=== PATIENT | female | born 1935 | race Caucasian/White ===

== ENCOUNTER 2016-09-02 11:00 | Day surgery (SDC) | payer MEDICARE, OTHER ==
[~2016-09-02] VITALS: Ht 167.6 cm; Wt 62.1 kg
--- NOTE | 2016-09-02 08:56 | PCM.HPANE ---
Patient Data Surgeon Admitting Provider: Attending Provider:Nava St MD Primary Care Physician:Elina Brown Other Provider: Reason for Visit Mixed Incontinence, Frequency Of Urination Ht/WT & BMI Height (Feet): 5 Height (Inches): 6 Weight (Kilograms): 60.78 Body Mass Index 21.00 Allergies Coded Allergies: Sulfa (Sulfonamide Antibiotics) (Verified Allergy, Unknown, rash, 08/31/16) ciprofloxacin (Verified Allergy, Unknown, rash, 08/31/16) clopidogrel (Verified Allergy, Unknown, nausea, 08/31/16) codeine (Verified Allergy, Unknown, 08/31/16) heparin (Verified Allergy, Unknown, 08/31/16) hydrochlorothiazide (Verified Allergy, Unknown, rash, 08/31/16) metoclopramide (Verified Allergy, Unknown, anxiety, 08/31/16) oxycodone (Verified Allergy, Unknown, 08/31/16) prednisone (Verified Allergy, Unknown, 08/31/16) Past Anesthesia History Anesthesia History: Denies:: Abnormal Airway, Anesthesia Reactions, Difficult Intubation, Fam Anesthesia Reaction Diabetes History Hx Diabetes?: No MRSA MRSA: No Medications Blood Thinner: Xarelto Hypertension Medication: No Home Meds Incl Beta Edy: No Reported Medications Calcium Carbonate (Calcium)600 Mg [id number] Mg PO BID 09/02/16 Mirtazapine (Remeron)15 Mg Tablet0.25 Tablet PO HS Ref 0 09/02/16 Rivaroxaban (Xarelto)15 Mg Rsqxab08 Mg PO DAILY 08/31/16 [vitamin d3] No Conflict CheckUnknown Dose DAILY 08/31/16 Ascorbic Acid (Vitamin C)1,000 Mg Tab.chew1,000 Mg PO DAILY Ref 0 08/31/16 Multivitamin (Multi Vitamin Daily)1 Each Tablet1 Each PO DAILY 30 Days Ref 0 08/31/16 Nitrofurantoin Macrocrystal (Macrodantin)50 Mg Jjqbiqx028 Mg PO BID Ref 0 08/31/16 Saccharomyces Boulardii (Florastor)250 Mg Bftfimd957 Mg PO DAILY 08/31/16 Estradiol (Estrace)42.5 Gm Cream.appl1 G VG 3xweekly #1 TUBE Ref 0 08/31/16 Diltiazem ER 120 Mg Capsule.er120 Mg PO DAILY Ref 0 3/13/17 D-Mannose 1 Gm Powder2 Tab MC DAILY 08/31/16 Discontinued Reported Medications Oxybutynin Chloride ER 10 Mg Tab.er.2410 Mg PO DAILY Ref 0 08/31/16 History HEENT History: Positive for:: Cataracts (bilateral) Hearing Problem Denies:: Abnormal Airway Difficult Intubation Dysphagia Glaucoma Sinus Problem TMJ Hx of Heart Problems?: Yes Cardiovascular History: Positive for:: Atrial Fibrillation Irregular Heartbeat (a fib) Denies:: AICD Abdominal Aortic Aneurism Edema Heart Murmur Hypertension Pacemaker Peripheral Vascular Rheumatic Fever Thrombophlebitis Hx of Respiratory Problem?: No Respiratory History: Denies:: Asthma COPD Emphysema Oxygen Administration Pneumonia (as child) Tuberculosis Use of C-PAP Machine Use of Inhalers / NEBS Hx Neurologic Problems?: Yes Neurological History: Positive for:: Dizziness (hx of vertigo) Headaches (when ill) TIA (tia- 8 years ago, no residual) Denies:: CVA Multiple Sclerosis Parkinson's Disease Seizures Hx of GI Problems?: Yes Gastrointestinal History: Positive for:: Gall Bladder Disease (lillian ) Denies:: Cirrhosis Gastroesphageal Reflux Gastrointestinal Bleeding Heartburn Hepatitis Hiatal Hernia Liver Disease Rectal Bleeding Hx of Problems?: Yes Genitourinary History: Positive for:: Urinary Tract Infection (recurring UTI' s ) Female Hx: Denies:: Currently (hysterectomy) Problems with Breasts? Skin History: Denies:: History Skin Disorders? Pressure Ulcers Hx Musculoskeletal Problems?: Yes Musculoskeletal History: Positive for:: Back Injury (back aches) Osteoarthritis Denies:: Fibromyalgia Joint Replacement Musculoskeletal Trauma (hx of left hip ) Myasthenia Gravis Hx of Psycho/Social Problems?: Yes Psycho Social History: Positive for:: Anxiety Hx Surgeries?: Yes (c section, lillian ) Hx Any Other Health Problems?: Yes Other History: Denies:: Cancer Thyroid Disease History Blood Transfusions: Positive for:: Accept Blood Products? Denies:: Blood Transfusions Hx Diabetes: No Hx Alcohol Use: NoHx Substance Use: NoHave You Smoked inLast 12 mo: No Stop/Bang S-Snoring: Do You Snore Loudly: No T-Tired: feel tired, fatigued: Yes O-Obsered: Observed not breath: No P-Blood Pressure: treated: No B- Body Mass Index > 35 kg/m2: No A- Age over 50: Yes N- Neck Large Circumference: No G- Gender Male: No MICHELL Total Score: 2 MICHELL Risk Assessment: Low Risk, <3 Yes Risk Assessment Category Category 1A: Patient has history of documented sleep apnea, and HAS NOT received any narcotic, sedative or anesthesia administration during this stay. Category 1B: Patient has history of documented sleep apnea, and HAS received any narcotic , sedative or anesthesia administration during this stay Category 2: Patient has SUSPECTED Obstructive Sleep Apnea, and HAS received any narcotic , sedative or anesthesia administration during this stay. Category 3: Patient has SUSPECTED Obstructive Sleep Apnea and HAS NOT received narcotic, sedative or anesthesia administration during this stay. Category 4: Outpatient in Procedural Areas with known sleep apnea or who screen positive for High Risk via the STOP/BANG questionnaire. Exam Exam General Appearance: Alert, Oriented X3, Cooperative, No Acute Distress HEENT/AIRWAY: MP 2 Lungs: Clear to Auscultation, Normal Air Movement Heart: Exam Unremarkable, Regular Rate/Rhythm, No Murmurs/Rubs/Gallops Plan Impression Patient chart reviewed, patient interviewed and anesthestic plan with risks, benefits, and alternatives discussed, and informed consent obtained. ASA Physical Status: ASA2 Mod Systemic Disease Anesthetic Plan: GA Bene/Risks/Altern/Consents: Yes HP Complete Prior to Induction: Yes Radhames Johnson MD Sep 02, 2016 08:55
[~2016-09-02 11:00] MED LIST: ASCO100089 PO; CeFAZolin Inj 2 GM in IV Premix 1 EACH IV ONE; D-MA1POW MC; DILT120C86 PO; ESTR42.52 VG; MULT-1018 PO; NITR50CA4 PO; OXYB10TA PO; RIVA15TA PO; SACC250C PO; vitamin d3 PO
[2016-09-02] MEDS ORDERED: Ketamine 10 mg/mL 20 mL Inj ONE (11:01)
[2016-09-02] MEDS ORDERED: Propofol 10,000 mCg/mL 20 mL Inj ONE (11:01)
[2016-09-02] MEDS ORDERED: Ondansetron 2 mg/mL 2 mL Inj ONE (11:01)
[2016-09-02] MEDS: Lactated Ringer's 1,000 ML IV SCH ×2 (11:15→12:47)
[2016-09-02 11:29] LABS: APPEARANCE,URINE HAZY (CLEAR,HAZY); COLOR,URINE YELLOW (YELLOW); OCCULT BLOOD,URINE TRACE (NEGATIVE); UROBILINOGEN,URINE NORMAL (NORMAL)
[2016-09-02] MEDS ORDERED: CeFAZolin Inj 2 gm / 50mL D5W IV ONE (11:33)
[2016-09-02] MEDS ORDERED: CALC600T12 PO (11:53)
[2016-09-02] MEDS ORDERED: MIRT15TA PO (11:53)
[2016-09-02 11:58] VITALS: BP 137/56; PULSE 65; RESP 17; O2SAT 95
[2016-09-02] MEDS ORDERED: Gentamicin 40 mg/mL 2 mL Inj IRRIGATION ONE (12:47)
[2016-09-02] MEDS ORDERED: Bupivacaine-MPF 0.5% W/EPI 30 mL Inj INJ ONE (12:47)
[2016-09-02] MEDS ORDERED: Vancomycin 1,000 mg Inj IRRIGATION ONE (12:47)
[2016-09-02] MEDS ORDERED: Lactated Ringer's 500 ML IV PRN (13:14)
[2016-09-02] MEDS ORDERED: Lactated Ringer's 1,000 ML IV SCH (13:14)
[2016-09-02] MEDS ORDERED: fentaNYL-PF 50 mCg/mL 2 mL Inj IVPUSH PRN (13:15)
[2016-09-02] MEDS ORDERED: EPHEDrine Sulfate 50 mg/mL Inj IVPUSH PRN (13:15)
[2016-09-02] MEDS ORDERED: Phenylephrine 10,000 mCg/mL Inj IVPUSH PRN (13:15)
[2016-09-02] MEDS ORDERED: Ondansetron 2 mg/mL 2 mL Inj IVPUSH PRN (13:15)
[2016-09-02 14:35] VITALS: BP 118/70; PULSE 68; RESP 14; O2SAT 98
[2016-09-02] MEDS ORDERED: Ondansetron 8 mg ODT Tablet PO PRN (14:40)
--- NOTE | 2016-09-02 15:14 | PCM.ANEP1 ---
Post Anesthesia Phase 1 PACU Phase 1 Assessment Vital Signs Vital Signs Date Time Temp Pulse Resp B/P Pulse Ox O2 Delivery O2 Flow Rate FiO2 09/02/16 11:58 36.3 65 17 137/56 95 Room Air Level of Alertness: Awake, talking MARLOW's with Equal Strength: Yes Pain: No Nausea or Vomiting: No Oxygen Delivery: Nasal Cannula Lungs: Clear to Auscultation, Normal Air Movement Dermatome Level: Full Sensation Radhames Johnson MD Sep 02, 2016 15:14
--- NOTE | 2016-09-02 15:15 | PCM.ANEP2 ---
Post Anesthesia Evaluation ASA/CMS Post Anesthesia VS in Patient's Normal Range?: Yes Resp Stable; Airway Patent?: Yes CV Function & Hydration Stable: Yes Mental Status Recovered?: Yes Pain control Satisfactory?: Yes N/V Control Satisfactory?: Yes Radhames Johnson MD Sep 02, 2016 15:14
[2016-09-02 15:40] VITALS: BP 118/74; PULSE 78; RESP 16; O2SAT 98
--- NOTE | 2016-09-03 10:19 | OP ---
[address] [address] OPERATIVE REPORT PATIENT: IRLANDA HARTLEY : 1935 MR#: [id number] ADMIT: 09/02/2016 JOB ID: [id number] DATE OF SURGERY: 09/02/2016 PROCEDURE: Stage 1 InterStim implant to include 1 transforaminal placement of a sacral neural electrode Quadripolar as well as 2 fluoroscopy imaging and guidance. SURGEON: Nava St M.D. ANESTHESIA: Local with monitored anesthesia care and IV sedation. PREOPERATIVE DIAGNOSIS(ES): Intractable urinary urgency, frequency, urge incontinence, also history of UTIs as well as fecal urgency and fecal incontinence. POSTOPERATIVE DIAGNOSIS(ES): Intractable urinary urgency, frequency, urge incontinence, also history of UTIs as well as fecal urgency and fecal incontinence. INDICATIONS: The patient is an 81-year-old with longstanding history of urinary symptoms progressively worsening with age with the addition at some point of fecal urgency and fecal incontinence daily. Tried and failed multiple behavioral changes, modifications and conservative measures, ultimately electing trial of sacral neuromodulation to try to help her severe symptoms. PROCEDURE IN DETAIL: After appropriate informed consent was obtained, the patient was brought to the operating room. She received IV antibiotics prior to onset of the procedure. She was made comfortable in the prone position. All pressure points carefully padded. Cleaned, prepped and draped in the usual sterile fashion. Fluoroscope was brought in. Bony landmarks were easily identified and identified the outlines of the right and left sacral foramina. We used a half/half mixture of lidocaine, Marcaine with epinephrine for local anesthesia. We used a finder needle to traverse first the right and then the left S3 sacral foramen. The patient had very shallow nerves and some bony changes. This was a somewhat tedious process to find a good placement for the lead. Ultimately we did choose a left-sided placement, a left S3, which elicited ashish and toe at reasonable responses. This was converted into Seldinger fashion over the guidewire to a quadripolar electrode. The patient's body habitus seemed to preclude us ever getting responses on all four electrodes. However, we were able to elicit very good responses on three electrodes, the deepest one was never involved and her lead placement was actually fairly shallow and in a slight, thin, older woman, this was not altogether unexpected. Ultimately we had very good total ashish response as well as indication of toe on electrodes 1, 2 and 3. Hemostasis was quite good. The obturator was removed allowing the leads to lock into place. Retesting revealed the same responses. Had good responses, appropriate responses at levels close to 1. We then created a pocket for the IPG ultimately on the right side. This was created sharply, bluntly and with electrocautery again with lidocaine, Marcaine for local anesthesia. Distal end of the quadripolar electrode was tunneled out to the right-sided pocket to make connections to the disposable extension wire for the test. This was then tunneled out maximal distance to the patient's left to increase distance between the externalized portion of the disposable wire extension and the permanent lead. All the wounds were irrigated out copiously multiple times with antibiotic solution of vancomycin and gentamicin. We then closed the wounds in layers with antibiotic irrigation between each one. This was a layer of 2-0 Vicryl running, layer of 4-0 Monocryl, benzoin and Steri-Strips. Hemostasis was quite good. Dressings were applied. She was awakened and taken in stable condition to the postanesthesia care unit. MEME
== END 2016-09-02 23:59 | disposition home or self-care (01) ==
LOC: SAS 11:00
PROVIDERS: ATTEND Urology
DX: N39.46 Mixed incontinence (principal); R35.0 Frequency of micturition; R35.1 Nocturia; N32.81 Overactive bladder; Z87.440 Personal history of urinary (tract) infections; I10 Essential (primary) hypertension; I48.91 Unspecified atrial fibrillation; R53.82 Chronic fatigue, unspecified; Z87.442 Personal history of urinary calculi; Z79.01 Long term (current) use of anticoagulants
CPT/HCPCS: 64581; 76000; 81000; 87077; 87086; 87088; 87186; C1778; J0690; J1580; J2250; J2405; J3370; J7120

== ENCOUNTER 2016-09-16 12:23 | Day surgery (SDC) | payer MEDICARE, OTHER ==
[~2016-09-16] VITALS: Ht 167.6 cm; Wt 61.8 kg
[2016-09-16] VITALS (7 sets, daily range): BP systolic 142–163; BP diastolic 58–81; PULSE 60–71; RESP 16–18; O2SAT 97–100
[~2016-09-16 12:23] MED LIST changes: -CeFAZolin Inj 2 GM in IV Premix 1 EACH IV ONE; -OXYB10TA PO; +Vancomycin Inj 1,000 MG in IV Premix 1 EACH IV ONE
[2016-09-16] MEDS ORDERED: Lidocaine PF 1% 30 mL Inj ONE (12:24)
[2016-09-16] MEDS ORDERED: Propofol 10,000 mCg/mL 20 mL Inj ONE (12:24)
[2016-09-16] MEDS ORDERED: Ketamine 10 mg/mL 20 mL Inj ONE (12:24)
[2016-09-16] MEDS ORDERED: Labetalol 5 mg/mL 20 mL Inj ONE (12:24)
[2016-09-16] MEDS ORDERED: Glycopyrrolate 0.2 MG/ML 1mL Inj ONE (12:24)
[2016-09-16] MEDS: Lactated Ringer's 1,000 ML IV SCH ×2 (12:49→14:32)
[2016-09-16] MEDS ORDERED: Vancomycin 1,000mg/200 mL NS IV ONE (12:54)
[2016-09-16] MEDS ORDERED: TRAM50TA2 PO (13:10)
[2016-09-16] MEDS ORDERED: CEPH500C PO (13:10)
--- NOTE | 2016-09-16 13:21 | PCM.HPANE ---
Patient Data Date of Service: Sep 16, 2016 Surgeon Admitting Provider: Attending Provider:Nava St MD Primary Care Physician:Elina Brown Other Provider:Beti Hodges Anesthesia Reason for Visit Cellulitis Ht/WT & BMI Height (Feet): 5 Height (Inches): 6 Weight (Kilograms): 61.8 Body Mass Index 21.00 Allergies Coded Allergies: Sulfa (Sulfonamide Antibiotics) (Verified Allergy, Severe, rash, 09/15/16) ciprofloxacin (Verified Allergy, Severe, rash, 09/15/16) hydrochlorothiazide (Verified Allergy, Severe, rash, 09/15/16) codeine (Verified Allergy, Unknown, UNKNOWN, 09/15/16) heparin (Verified Allergy, Unknown, UNKNOWN, 09/15/16) oxycodone (Verified Allergy, Unknown, UNKNOWN, 09/15/16) prednisone (Verified Allergy, Unknown, UNKNOWN, 09/15/16) clopidogrel (Verified Adverse Reaction, Severe, nausea, 09/15/16) metoclopramide (Verified Adverse Reaction, Severe, anxiety, 09/15/16) Past Anesthesia History Anesthesia History: Denies:: Abnormal Airway, Anesthesia Reactions, Difficult Intubation, Fam Anesthesia Reaction, Malignant Hyperthermia Diabetes History Hx Diabetes?: No MRSA MRSA: No Medications Blood Thinner: Xarelto Hypertension Medication: Yes (DILTIAZEM) Home Meds Incl Beta Edy: No Reported Medications Tramadol 50 Mg Ploouu96 Mg PO prn #30 09/16/16 Cephalexin 500 Mg Mwjpgjz071 Mg PO BID #28 09/16/16 Rivaroxaban (Xarelto)15 Mg Adpwkd36 Mg PO DAILY 08/31/16 [vitamin d3] No Conflict Check1,000 U Po Daily 08/31/16 Ascorbic Acid (Vitamin C)1,000 Mg Tab.chew1,000 Mg PO DAILY Ref 0 08/31/16 Multivitamin (Multi Vitamin Daily)1 Each Tablet1 Each PO DAILY 30 Days Ref 0 08/31/16 Nitrofurantoin Macrocrystal (Macrodantin)50 Mg Aqapqoz260 Mg PO BID Ref 0 08/31/16 Saccharomyces Boulardii (Florastor)250 Mg Vhkeeix753 Mg PO DAILY 08/31/16 Estradiol (Estrace)42.5 Gm Cream.appl1 G VG 3xweekly #1 TUBE Ref 0 0.01% 08/31/16 Diltiazem ER 120 Mg Capsule.er120 Mg PO DAILY Ref 0 08/31/16 D-Mannose 1 Gm Powder2 Tab MC DAILY 08/31/16 History History of ENT Problems?: Yes HEENT History: Positive for:: Cataracts (S/P B/L EXTRACTIONS) Hearing Problem Sinus Problem (S/P NASAL RPR) Denies:: Abnormal Airway Difficult Intubation Dysphagia TMJ Teeth Condition: Tooth Decay Hx of Heart Problems?: Yes Cardiovascular History: Positive for:: Atrial Fibrillation (DILTIAZEM) Hypertension Irregular Heartbeat (a fib) Denies:: AICD Abdominal Aortic Aneurism Chest Pain (endorses chest musculoskeletal pain) Edema Heart Murmur Pacemaker Rheumatic Fever Thrombophlebitis Other Cardiac History: no sob Hx of Respiratory Problem?: Yes Respiratory History: Positive for:: Pneumonia (as child) Denies:: Asthma COPD Emphysema Oxygen Administration Tuberculosis Use of C-PAP Machine Hx Neurologic Problems?: Yes Neurological History: Positive for:: Dizziness (hx of vertigo) Headaches TIA (8YRS AGO-NO RESIDUAL) Denies:: CVA Multiple Sclerosis Parkinson's Disease Seizures Hx of GI Problems?: Yes Gastrointestinal History: Positive for:: Gall Bladder Disease (S/P ANTONIA) Denies:: Cirrhosis Gastroesphageal Reflux (HX PUD-HX H. PYLORI) Gastrointestinal Bleeding Heartburn Hepatitis Hiatal Hernia Rectal Bleeding Hx of Problems?: Yes Genitourinary History: Positive for:: Kidney Stones (HX OF S/P CYSTO/ STENT LITHOTRIPSY,ESWL) Urinary Tract Infection (recurring UTI's (HOSP @ [facility] 09/12/16)) Other Pertinent History: S/P INTERSTIM I THERAPY W/ POSTOP CELLULITIS OF BUTTOCK=CURRENT PROBLEM Female Hx: Denies:: Currently Problems with Breasts? Skin History: Denies:: History Skin Disorders? Pressure Ulcers Hx Musculoskeletal Problems?: Yes Musculoskeletal History: Positive for:: Back Injury (C/OF BACK "ACHES") Osteoarthritis Denies:: Joint Replacement Musculoskeletal Trauma (HX LT HIP INJURY) Hx of Psycho/Social Problems?: Yes Psycho Social History: Positive for:: Anxiety Hx Surgeries?: Yes (C/S, ANTONIA, HYST,CATARACTS,EYELID RPR,NASAL RPR,CYSTO/STENT /ESWL,INTERSTIM ) Hx Any Other Health Problems?: Yes Other History: Positive for:: Hospitalization Denies:: Cancer Endocrine Disease Thyroid Disease History Blood Transfusions: Denies:: Blood Transfusions Hx Diabetes: No Hx Alcohol Use: YesAlcoholic Drinks Per Day: 3/WEEKHx Substance Use: No Smoking Status: Never Smoker Have You Smoked inLast 12 mo: No Stop/Bang S-Snoring: Do You Snore Loudly: No T-Tired: feel tired, fatigued: Yes O-Obsered: Observed not breath: No P-Blood Pressure: treated: Yes B- Body Mass Index > 35 kg/m2: No A- Age over 50: Yes N- Neck Large Circumference: No G- Gender Male: No MICHELL Total Score: 3 MICHELL Risk Assessment: Low Risk, <3 Yes Risk Assessment Category Category 1A: Patient has history of documented sleep apnea, and HAS NOT received any narcotic, sedative or anesthesia administration during this stay. Category 1B: Patient has history of documented sleep apnea, and HAS received any narcotic , sedative or anesthesia administration during this stay Category 2: Patient has SUSPECTED Obstructive Sleep Apnea, and HAS received any narcotic , sedative or anesthesia administration during this stay. Category 3: Patient has SUSPECTED Obstructive Sleep Apnea and HAS NOT received narcotic, sedative or anesthesia administration during this stay. Category 4: Outpatient in Procedural Areas with known sleep apnea or who screen positive for High Risk via the STOP/BANG questionnaire. Exam Exam Vital Signs Vital Signs Date Time Temp Pulse Resp B/P Pulse Ox O2 Delivery O2 Flow Rate FiO2 09/16/16 13:02 36.5 60 17 163/58 98 Room Air General Appearance: Alert, Oriented X3, Cooperative, No Acute Distress HEENT/AIRWAY: MP 3, Neck Movement (from), Mouth Opening (4), Other (tmd3) Lungs: Diminished Heart: Exam Unremarkable, Regular Rate/Rhythm, Normal S1, Normal S2, No Murmurs /Rubs/Gallops Meds/Labs/Diagnostics Admission Meds Current Medications Lactated Ringer's 1,000 ml @ 120 mls/hr Q8H20M IV Last administered on t 12:49; Start 09/16/16 at 05:00; Stop 09/16/16 at 13:19; Status DC Vancomycin/0.9 % Sod Chloride/ Premix (Vancomycin Inj/ IV Premix) 200 ml @ 133.333 mls/hr PREOP ONCE IV Last administered on 09/16/16t 13:16; Start 09/16 at 06:00; Stop 09/16/16 at 07:29; Status DC Plan Impression Patient chart reviewed, patient interviewed and anesthestic plan with risks, benefits, and alternatives discussed, and informed consent obtained. NPO Status: 09/15/16 ASA Physical Status: ASA3 Severe Disease Anesthetic Plan: TIVA Bene/Risks/Altern/Consents: Yes HP Complete Prior to Induction: Yes Jeffrey Santos MD Sep 16, 2016 13:21
[2016-09-16] MEDS ORDERED: Lactated Ringer's 1,000 ML IV SCH (14:07)
[2016-09-16] MEDS ORDERED: Lactated Ringer's 500 ML IV PRN (14:07)
[2016-09-16] MEDS ORDERED: HYDROmorphone 1 mg/mL Inj IVPUSH PRN (14:10)
[2016-09-16] MEDS ORDERED: Ondansetron 2 mg/mL 2 mL Inj IVPUSH PRN (14:10)
[2016-09-16] MEDS ORDERED: EPHEDrine Sulfate 50 mg/mL Inj IVPUSH PRN (14:10)
[2016-09-16] MEDS ORDERED: fentaNYL-PF 50 mCg/mL 2 mL Inj IVPUSH PRN (14:10)
[2016-09-16] MEDS ORDERED: Phenylephrine 10,000 mCg/mL Inj IVPUSH PRN (14:10)
[2016-09-16] MEDS ORDERED: Gentamicin 40 mg/mL 2 mL Inj IRRIGATION ONE (14:18)
[2016-09-16] MEDS ORDERED: Vancomycin 1,000 mg Inj IRRIGATION ONE (14:18)
[2016-09-16] MEDS ORDERED: Bupivacaine 0.5%/EPI 50 mL Inj INFILTRATE ONE (14:19)
[2016-09-16] MEDS ORDERED: HYDROcodone-APAP 5-325 mg Tablet PO PRN (15:00)
[2016-09-16] MEDS ORDERED: Ondansetron 8 mg ODT Tablet PO PRN (15:00)
--- NOTE | 2016-09-16 17:53 | PCM.ANEP2 ---
Post Anesthesia Evaluation ASA/CMS Post Anesthesia VS in Patient's Normal Range?: Yes Resp Stable; Airway Patent?: Yes CV Function & Hydration Stable: Yes Mental Status Recovered?: Yes Pain control Satisfactory?: Yes N/V Control Satisfactory?: Yes Jeffrey Santos MD Sep 16, 2016 17:53
--- NOTE | 2016-09-16 17:53 | PCM.ANEP1 ---
Post Anesthesia Phase 1 PACU Phase 1 Assessment Date of Service: Sep 16, 2016 Vital Signs Vital Signs Date Time Temp Pulse Resp B/P Pulse Ox O2 Delivery O2 Flow Rate FiO2 09/16/16 15:32 63 16 143/66 97 Room Air 09/16/16 15:22 63 16 158/63 99 Room Air 09/16/16 15:15 65 16 144/81 98 Room Air 09/16/16 15:10 67 16 151/59 99 Room Air 09/16/16 15:05 67 16 144/81 98 Room Air 09/16/16 15:00 36.3 71 18 142/65 100 Room Air 09/16/16 13:02 36.5 60 17 163/58 98 Room Air Anesthetic Administered: TIVA Level of Alertness: Awake, talking MARLOW's with Equal Strength: Yes Pain: No Pain Scale Score: 0 Nausea or Vomiting: No Oxygen Delivery: Simple Mask Lungs: Diminished Jeffrey Santos MD Sep 16, 2016 17:53
--- NOTE | 2016-09-17 09:58 | OP ---
[address] [address] OPERATIVE REPORT PATIENT: IRLANDA HARTLEY : 1935 MR#: [id number] ADMIT: 09/16/2016 JOB ID: [id number] DATE OF SURGERY: 09/16/2016 PROCEDURE NAME: Incision and drainage of wound infection, with removal of hardware. SURGEON: Nava St MD. ANESTHESIA: Local, with monitored anesthesia care and IV sedation. PREOPERATIVE DIAGNOSIS(ES): Wound infection with history of stage 1 InterStim implant on September 02, 2016. POSTOPERATIVE DIAGNOSIS(ES): Wound infection with history of stage 1 InterStim implant on September 02, 2016. INDICATIONS: The patient began to have difficulties at home during the trial and ultimately went to the hospital on [facility], where she was admitted for a urinary tract infection. During this time, was not seen or examined by Urology, as she was at a different location. She was discharged to home, having missed her stage two or interval surgery and evaluation time. Ultimately, was seen in the office on September 14, 2016, where she was definitely proved to have some blanching erythema surrounding the right-sided pocket incision. The remainder of the wound looked quite good. She was tender here also, certainly convincing and concerning for a wound infection. She stated she felt better since discharge from the hospital. We kept her makeup surgery date as September 16 for incision, removal of hardware, and irrigation. PROCEDURE IN DETAIL: The patient received IV vancomycin prior to onset of the procedure. She was made comfortable in the prone position. All pressure points carefully padded. Cleaned, prepped, and draped in the usual sterile fashion. Half/half mixture of lidocaine and Marcaine was used to infiltrate the area overlying the right-sided buttock wound, which did still look completely intact, however, with blanching erythema and tenderness on exam. We incised this and had return of some gross purulence, which was sent for culture. The wound itself was opened up completely. The material was irrigated out. Underlying fat and pocket site actually looked quite clean. Hardware was removed. We removed the sacral neuro electrode by pulling from the pocket site where it came readily, and then cut the distal end allowing the externalized portion to fall out that way. Thus, nothing from the infected pocket site was pulled either towards the midline of the patient or across the midline to the old wire exit site. The wound was irrigated out copiously. Given the amount of purulence that was seen, we decided to go ahead and make an incision overlying the prior stab incision for the lead. This had looked completely normal at exam, then largely pain free. With local anesthesia once again, incision was made. There was no purulence. No drainage. No odor. Nevertheless, we opened this up and irrigated ir out copiously with vancomycin and gentamicin solution. This wound was closed with a layer of 2-0 Vicryl suture. The pocket site wound appearing to be completely clean, we closed some of the space with 2-0 Vicryl suture. This was irrigated out with 2 L of vancomycin and gentamicin and then closed the mid portion of the wound with a stretch of 2-0 Vicryl only. The two ends were packed with wicking iodoform gauze leaving the wound mostly closed but with an area of wicking to drain any material on the medial and lateral wound margins. The patient tolerated the procedure well. Again, a little more Marcaine was used for postop pain control. A sterile dressing was applied. She was awakened and taken back to the one-day surgery area prior to discharge to home. She will continue on her Keflex and Macrobid (she has numerous drug allergies precluding using BACTRIM or QUINOLONES).
== END 2016-09-16 23:59 | disposition home or self-care (01) ==
LOC: SAS 12:23
PROVIDERS: ATTEND Urology
DX: L03.317 Cellulitis of buttock (principal); N39.46 Mixed incontinence; R35.1 Nocturia; R35.0 Frequency of micturition; I10 Essential (primary) hypertension; I48.91 Unspecified atrial fibrillation; N32.81 Overactive bladder; Z87.440 Personal history of urinary (tract) infections; Z87.442 Personal history of urinary calculi; Z79.01 Long term (current) use of anticoagulants
CPT/HCPCS: 10060; 64585; 87070; 87075; 87077; 87186; 87205; J1200; J1580; J2250; J3370; J7120